=== PATIENT | female | born 1955 | race Caucasian/White ===

== ENCOUNTER 2020-07-16 20:07 | Emergency (ER) | payer MEDICARE, OTHER ==
[~2020-07-16] VITALS: Ht 157.5 cm; Wt 79.4 kg
[~2020-07-16 20:07] MED LIST: BAYER CHEWABLE81 MG PO; CELEBREX50 MG; CELEXA20 MG PO; CRESTOR20 MG PO; DIOVAN40 MG PO; PLAVIX75 MG PO; UNITHROID75 MCG PO
[2020-07-16 20:23] VITALS: Ht 157.5 cm; Wt 79.4 kg
[2020-07-16] MEDS ORDERED: NORVASC5 MG PO (20:25)
[2020-07-16] MEDS ORDERED: PROAIR HFA8.5 G1 INH (20:25)
[2020-07-16] MEDS ORDERED: COREG 3.1253.125 MG PO (20:26)
[2020-07-16] MEDS ORDERED: LIPITOR40 MG PO (20:26)
[2020-07-16] MEDS ORDERED: NOVOLOG100 UNIT/1 SC (20:28)
[2020-07-16] MEDS ORDERED: COZAAR50 MG PO (20:28)
[2020-07-16] MEDS ORDERED: [UNRECOGNIZED DRUG - SUPPLY] (20:28)
[2020-07-16] MEDS ORDERED: COMPAZINE25 MG RC (20:29)
[2020-07-16] MEDS ORDERED: PHENERGAN25 M1 PO (20:29)
[2020-07-16] MEDS ORDERED: SYNTHROID50 MCG PO (20:29)
[2020-07-16 20:47] LABS: UDS - AMPHET NEGATIVE QUAL (NEGATIVE); UDS - BARB NEGATIVE QUAL (NEGATIVE); UDS - BENZO NEGATIVE QUAL (NEGATIVE); UDS - COCAINE NEGATIVE QUAL (NEGATIVE); UDS - OPIATE NEGATIVE QUAL (NEGATIVE); UDS - PCP NEGATIVE QUAL (NEGATIVE); UDS - THC NEGATIVE QUAL (NEGATIVE)
[2020-07-16 20:48] LABS: EOSINOPHILS 5.3 % (0-7); HEMATOCRIT 38.1 % (36.0-48.0); IMMATURE GRANULOCYTES 0.2 % (0-5); LYMPHOCYTE ABS# 1.23 10x3/uL (1.18-3.74); LYMPHOCYTES 27.3 % (15-50); MCH 32.3 pg (26.0-34.0); MCHC 34.1 g/dL (31.0-37.0); MCV 94.5 fL (80.0-100.0); MEAN PLATELET VOLUME 9.9 fL (7.4-10.4); MONOCYTES 7.6 % (2-11); NEUTROPHIL ABS# 2.59 10x3/uL (1.56-6.13); NEUTROPHILS 57.6 % (40-80); RBC 4.03 10x6/uL (4.00-5.40); RDW 11.9 % (11.5-14.5); WBC 4.5 10x3/uL (4.8-10.8)
[2020-07-16 20:55] LABS: BILIRUBIN NEGATIVE (NEGATIVE); KETONE NEGATIVE (NEGATIVE); NITRITE NEGATIVE (NEGATIVE); UROBILINOGEN NORMAL mg/dL (< 2)
[2020-07-16 20:55] LABS: ALBUMIN 3.3 g/dL (3.4-5.0); ANION GAP 12.6 mmol/L (8-16); BILIRUBIN - TOTAL 0.48 mg/dL (0.2-1.3); CALCIUM 9.5 mg/dL (8.5-10.1); CARBON DIOXIDE 27.6 mmol/L (21.0-32.0); CREATININE - SERUM 1.5 mg/dL (0.6-1.3); MAGNESIUM - SERUM 2.3 mg/dL (1.8-2.4); PLATELET COUNT 257 10x3/uL (130-400); POTASSIUM - SERUM 5.2 mmol/L (3.5-5.1); PROTEIN - SERUM 6.8 g/dL (6.4-8.2)
[2020-07-16 21:00] LABS: SARS-CoV-2 ANTIGEN NEGATIVE- SARS-COV-2 (NEGATIVE)
--- NOTE | 2020-07-16 22:41 | NUR ---
DR TERENCE MCKOYIED AND SITTER ORDERED. SITTER AT BEDSIDE. NOTIFIED CHARGE NURSE AND ATTENDING IN REGARDS TO ASSESSMENT FINDINGS. RESOURCES GIVEN TO PT AND SAFETY PLAN INITIATED.
[2020-07-17 03:33] VITALS: BP 147/81
== END 2020-07-17 04:05 ==
LOC: D.ER 20:07
PROVIDERS: Family Medicine
DX: R45.851 Suicidal ideations (principal); F32.9 Major depressive disorder, single episode, unspecified; E11.9 Type 2 diabetes mellitus without complications; I10 Essential (primary) hypertension; Z79.4 Long term (current) use of insulin

== ENCOUNTER 2020-08-12 18:56 | Inpatient (IN) | payer MEDICARE, OTHER ==
[~2020-08-12] VITALS: Ht 160 cm; Wt 82.3 kg
[~2020-08-12 18:56] MED LIST changes: +COMPAZINE25 MG RC; +COREG 3.1253.125 MG PO; +LIPITOR40 MG PO; +NORVASC5 MG PO; +NOVOLOG100 UNIT/1 SC; +PHENERGAN25 M1 PO; +PROAIR HFA8.5 G1 INH; +SYNTHROID50 MCG PO; +SYNTHROID75 MCG PO; +[UNRECOGNIZED DRUG - SUPPLY]
[2020-08-12 19:55] LABS: BASOPHILS 1.4 % (0-2); EOSINOPHILS 0.6 % (0-7); HEMATOCRIT 39.3 % (36.0-48.0); LYMPHOCYTES 9.7 % (15-50); MCH 32.3 pg (26.0-34.0); MCHC 33.1 g/dL (31.0-37.0); MCV 97.3 fL (80.0-100.0); MEAN PLATELET VOLUME 8.3 fL (7.4-10.4); MONOCYTES 5.3 % (2-11); PLATELET COUNT 238 10x3/uL (130-400); RBC 4.03 10x6/uL (4.00-5.40); RDW 12.5 % (11.5-14.5)
[2020-08-12 20:15] VITALS: BP 146/62
[2020-08-12 20:28] LABS: ALBUMIN 3.4 g/dL (3.4-5.0); ALKALINE PHOSPHATASE 248 U/L (30-120); ALT (SGPT) 50 U/L (10-68); BILIRUBIN - TOTAL 1.05 mg/dL (0.2-1.3); CALC OSMOLALITY 300 mosm/kg (275-300); CALCIUM 9.2 mg/dL (8.5-10.1); CARBON DIOXIDE 17.9 mmol/L (21.0-32.0); CHLORIDE - SERUM 95 mmol/L (98-107); CREATININE - SERUM 1.3 mg/dL (0.6-1.3); POTASSIUM - SERUM 5.5 mmol/L (3.5-5.1); PROTEIN - SERUM 6.7 g/dL (6.4-8.2); SODIUM 130 mmol/L (136-145); TROPONIN-I < 0.017 ng/mL (0.000-0.060); UREA NITROGEN 31 mg/dL (7-18); eGFR NON AFRICAN AMERICAN 44 mL/min (90-120)
[2020-08-12 20:32] LABS: GLUCOSE 688 mg/dL (74-106)
[2020-08-12 20:39] LABS: BILIRUBIN NEGATIVE (NEGATIVE); KETONE LARGE mg/dL (NEGATIVE); NITRITE NEGATIVE (NEGATIVE); UROBILINOGEN NORMAL mg/dL (< 2)
[2020-08-12 20:45] VITALS: BP 164/64
[2020-08-12 21:45] VITALS: BP 168/70
--- NOTE | 2020-08-12 22:17 | NUR ---
DR. PRATT NOTIFIED AND REVIEWED PTS BEHAVIOR AND ASSESSMENT RESULTS. PT IS A LOW RISK PER DR. PRATT. DR. PRATT STATED TO GIVE RESOURCES TO PT AT TIME OF DISCHARGE. NO FURTHER ORDERS AT THIS TIME. RESOURCES REVIEWED WITH PT AND SHE VERBALIZED UNDERSTANDING.
[2020-08-12 23:00] VITALS: BP 158/63
[2020-08-13] VITALS (24 sets, daily range): BP systolic 109–174; BP diastolic 40–78; Ht 160 cm; Wt 82.3 kg
--- NOTE | 2020-08-13 01:49 | NUR ---
PAGED YVONNE GRINDING MACHINE TENDER TO REQUEST ORDERS FOR LABS, WAITING ORIENTOR BACK
[2020-08-13 05:13] LABS: APTT 27.5 SECONDS (22.8-39.4); INR 1.15 (0.85-1.17); PROTIME 13.6 SECONDS (11.6-15.0)
[2020-08-13 05:26] LABS: THYROID STIMULATING HORMONE 2.07 uIU/mL (0.36-3.74)
--- NOTE | 2020-08-13 06:35 | NUR ---
METABOLIC PROFILE NOT RESULTED YET, CALLED LAB TWICE REGARDING THIS ISSUE, STILL AWAITING AM LAB RESULTS
[2020-08-13 06:50] LABS: CALCIUM 8.6 mg/dL (8.5-10.1); CARBON DIOXIDE 17.7 mmol/L (21.0-32.0); POTASSIUM - SERUM 3.7 mmol/L (3.5-5.1)
[2020-08-13 09:23] LABS: CALCIUM 8.9 mg/dL (8.5-10.1)
[2020-08-13 09:24] LABS: ANION GAP 13.7 mmol/L (8-16); CARBON DIOXIDE 22.7 mmol/L (21.0-32.0); POTASSIUM - SERUM 4.4 mmol/L (3.5-5.1)
--- NOTE | 2020-08-13 09:36 | NUR ---
SPOKE WITH DR GONZALEZ REGARDING LABS. ANION GAP IN AM LABS WAS 15. NO LAB RECHECK AT THIS TIME PER DR. GONZALEZ. LAST BLOOD GLUCOSE WAS 116. START LOW DOSE SLIDING SCALE PER DR. GONZALEZ.
[2020-08-13 10:12] LABS: UDS - AMPHET NEGATIVE QUAL (NEGATIVE); UDS - BARB NEGATIVE QUAL (NEGATIVE); UDS - BENZO NEGATIVE QUAL (NEGATIVE); UDS - COCAINE NEGATIVE QUAL (NEGATIVE); UDS - OPIATE NEGATIVE QUAL (NEGATIVE); UDS - PCP NEGATIVE QUAL (NEGATIVE); UDS - THC NEGATIVE QUAL (NEGATIVE)
--- NOTE | 2020-08-13 10:58 | NUR ---
SPOKE WITH BRYCE KIMBLE WALL SCRAPER WITH DR. GONZALEZ. OKAY TO KEEP SLIDING SCALE INSULIN Q 4HR. START DIABETIC DIET.
[2020-08-13 12:40] LABS: CALCIUM 8.7 mg/dL (8.5-10.1); CARBON DIOXIDE 22.6 mmol/L (21.0-32.0); POTASSIUM - SERUM 4.6 mmol/L (3.5-5.1)
--- NOTE | 2020-08-13 14:26 | NUR ---
BLOOD GLUCOSE 360. DR. GONZALEZ NOTIFIED. ORDERED 8UNITS INSULIN IV TO BE GIVEN AT THIS TIME.
[2020-08-13 16:08] LABS: ANION GAP 10.5 mmol/L (8-16); CALCIUM 8.5 mg/dL (8.5-10.1); CARBON DIOXIDE 22.7 mmol/L (21.0-32.0); POTASSIUM - SERUM 4.2 mmol/L (3.5-5.1)
[2020-08-13 16:12] LABS: CREATININE - SERUM 1.4 mg/dL (0.6-1.3)
--- NOTE | 2020-08-13 16:43 | NUR ---
SPOKE WITH DR. GONZALEZ REGARDING BLOOD GLUCOSE OF 327. INFORMED HIM THAT PT GOT 8UNITS PER SLIDING SCALE. ORDERED TO START INSULIN DRIP AT 0.6 AND CONTINUE TO ACCU CHECKS Q6HR.
[2020-08-14] VITALS (19 sets, daily range): BP systolic 138–184; BP diastolic 53–85
[2020-08-14 05:09] LABS: BASOPHILS 1.9 % (0-2); EOSINOPHILS 6.1 % (0-7); HEMATOCRIT 31.8 % (36.0-48.0); LYMPHOCYTES 36.3 % (15-50); MCH 32.8 pg (26.0-34.0); MCHC 34.5 g/dL (31.0-37.0); MEAN PLATELET VOLUME 7.8 fL (7.4-10.4); MONOCYTES 7.4 % (2-11); NEUTROPHILS 48.3 % (40-80); RBC 3.35 10x6/uL (4.00-5.40); RDW 12.5 % (11.5-14.5)
[2020-08-14 05:23] LABS: WBC 3.9 10x3/uL (4.8-10.8)
[2020-08-14 05:24] LABS: PLATELET COUNT 189 10x3/uL (130-400)
[2020-08-14 05:38] LABS: BILIRUBIN - TOTAL 0.37 mg/dL (0.2-1.3); CALCIUM 8.6 mg/dL (8.5-10.1); CARBON DIOXIDE 27.2 mmol/L (21.0-32.0); POTASSIUM - SERUM 4.2 mmol/L (3.5-5.1); PROTEIN - SERUM 5.6 g/dL (6.4-8.2)
[2020-08-14 05:39] LABS: ALBUMIN 2.5 g/dL (3.4-5.0)
--- NOTE | 2020-08-14 07:40 | NUR ---
RECIEVED REPORT FROM TUCKER ROTH FROM DAY SHIFT AND PATIENT CARE ASSUMED. PATIENT LAYING IN BED ON RT SIDE WITH EYES CLOSED AND BREATHING EVENLY. VSS. ALL LINES CHECKED. WILL CONTINUE WITH PLAN OF CARE. SR UP X 2 BED IN LOW POSITION AND CALL LIGHT IN REACH.
--- NOTE | 2020-08-14 08:21 | NUR ---
ANION GAP IS 11. PER HOSPITAL PROTOCOL DCD INSULIN PUMP.
--- NOTE | 2020-08-14 08:23 | NUR ---
ASSISTED PATIENT MULTIPLE TIMES WITH TV AND BED POSITION.
--- NOTE | 2020-08-14 20:44 | NUR ---
PT ASSISTED TO FAMILY CAR VIA WHEELCHAIR WITH THIS NURSE. PT TRANSFERRED SELF TO CAR WITH OUT DIFFICULTY.
== END 2020-08-14 20:40 | disposition home or self-care (01) | DRG 639 ==
LOC: D.ER 18:56 → D.CVICU 21:29
PROVIDERS: Student in an Organized Health Care Education/Training Program; ADMIT Emergency Medicine; ATTEND Emergency Medicine
DX: E11.10 Type 2 diabetes mellitus with ketoacidosis without coma (principal); E78.5 Hyperlipidemia, unspecified; E03.9 Hypothyroidism, unspecified; J44.9 Chronic obstructive pulmonary disease, unspecified; F41.8 Other specified anxiety disorders; Z79.4 Long term (current) use of insulin; Z96.41 Presence of insulin pump (external) (internal); D72.829 Elevated white blood cell count, unspecified; I10 Essential (primary) hypertension